=== PATIENT | male | born 1960 | race Caucasian/White ===

== ENCOUNTER 2016-09-08 13:03 | Inpatient (IN) | payer MEDICARE ==
--- NOTE | ~2016-09-08 | DS ---
Unit #: [id number] #: [id number] Patient: NYLA BRANDON [id number] [facility] [address] [place], [place] [address] [id number] MR#: [id number] NAME: NYLA BRANDON ROOM: 312 Age: 56 Sex: M Admission Date: 09/08/2016 : 1960 Discharge Date: 09/10/2016 Attending Physician: Brittany Multani M.D. Primary Care Physician: Ana Paula Corea M.D. DISCHARGE SUMMARY REASON FOR ADMISSION Bilateral/bibasilar pneumonia/acute respiratory failure. HISTORY OF PRESENT ILLNESS/HOSPITAL COURSE The patient is a 56-year-old morbidly obese gentleman with underlying past history of atrial fibrillation, coronary artery disease, stent placement, recent hospital admission at [facility] in late 04/2016 for squamous cell carcinoma around the anus, status post resection of large tumor with wound VAC placement, who has chronic lower extremity venous stasis and/or wounds. He apparently was going to his wound care physician for the first time. He called over the phone, was asking about how many stairs were present, he states that he has some difficulty breathing and was instructed to go to the emergency room. While he was evaluated at [facility], his chest x-ray showed bibasilar pneumonia and thus he was transferred to [facility] for healthcare acquired pneumonia in consideration of his recent hospital stay. He was placed on initial IV antibiotics while he was at the outside facility. While he was here, clinically speaking, he was stable, he was placed on telemetry floor. He underwent a CT chest without contrast, which did reveal atherosclerotic aorta as well as aortic aneurysm dilatation up to 4.3 cm, but there was no acute infiltrates which are noted. There was scattered areas of atelectasis which were noted. His antibiotics were later discontinued altogether. He was placed on Levaquin as well as a DuoNeb aerosol solutions and Solu-Medrol secondary to acute respiratory failure. He was noted to be acutely hypoxic with his O2 saturations in the mid 80s. His oxygen was gradually weaned to room air. It currently is in the mid 90s. His Solu-Medrol since been discontinued, transitioned to p.o. prednisone. It seems likely the most likely cause of his acute hypoxic respiratory failure with COPD exacerbation. In regard to his underlying history of chronic wounds as well as lower extremity venous stasis changes, I became concerned for possibility of diabetes. His hemoglobin A1c was assessed at this hospital admission came Unit #: [id number] #: [id number] Patient: NYLA BRANDON at 6.1%. It appears that his sugar is fairly stable. In regard to his chronic lower extremity edema and wounds, we placed consultation to Dr. Buckley, who recommended outpatient followup at the [facility]. Blood cultures were also ascertained this hospital admission, which were negative. At this point in time, he is currently medically stable for discharge. I did also discuss this case with Dr. Noelle Soriano of Oncology Services. The patient is to continue wound care VAC changes on Wednesday, Wednesday, and Wednesday, which is followed by visiting nurse services at home. He will follow up with Dr. Michael Turner of Oncology Services as an outpatient for ongoing radiation and further treatment in regard to his underlying history of squamous carcinoma of the skin around the anus. He is to be maintained on Coumadin for his chronic atrial fibrillation. There were no acute events while he was here. He is to follow up with Dr. Buckley as an outpatient for chronic lower extremity wounds. I will give him a prescription for Levaquin as well as prednisone at time of discharge. Please see below for details of medications adjustment. FINAL DISCHARGE DIAGNOSES 1. Acute hypoxic respiratory failure on admission, now improved. 2. Acute exacerbation of chronic obstructive pulmonary disease. 3. Severe morbid obesity. 4. Chronic atrial fibrillation. 5. Coronary artery disease, status post stent placement in the past. 6. Presumed healthcare acquired pneumonia on initial chest x-ray; however, CT chest negative. 7. 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 8. Chronic lower extremity venous stasis. 9. Chronic anticoagulation with Coumadin. 10. Peripheral neuropathy likely secondary to diabetes. 11. Insulin-dependent diabetes. 12. Depression. 13. Chronic lower extremity edema. 14. Chronic pain syndrome. FINAL DISCHARGE MEDICATIONS Levaquin 750 mg p.o. daily x5 days, prednisone 40 mg p.o. daily x5 days, Symbicort 160/4.5 two puffs b.i.d., DuoNeb aerosol solution q.6 hours scheduled while at home, Proventil HFA 1 to 2 puffs q.6 p.r.n., prednisone 40 mg p.o. daily x5 days, Tylenol 650 mg p.o. q.6 p.r.n., Coumadin 8 mg p.o. daily, Neurontin 400 mg p.o. b.i.d., Wellbutrin XL 300 mg p.o. daily, Bystolic 20 mg p.o. daily, digoxin 0.125 mg p.o. daily, Lasix 40 mg p.o. daily, Catapres 0.2 mg p.o. q.6, Diovan 80 mg p.o. daily, Toujeo SoloStar 8 units subcu daily, Percocet 7.5/325 one tablet p.o. q.8 hours p.r.n., Aldactone 25 mg p.o. daily, K-Dur 20 mEq p.o. daily, theophylline 400 mg p.o. daily, Daliresp 500 mcg p.o. daily, Imdur 60 mg p.o. daily, vitamin B12 1000 mcg IM q.2 weeks to be set up by primary care physician. Unit #: [id number] #: [id number] Patient: NYLA BRANDON DISCHARGE CONDITION Stable. DISCHARGE DISPOSITION Home. [facility] to continue to follow the patient as outpatient for wound care/wound VAC changes Wednesday, Wednesday, Wednesday. FOLLOWUP Follow up wound clinic, Dr. Buckley's office at [facility] [address] Turner, Oncology services per previous direction. Followup PCP in 7 to 10 days for CBC, PT/INR. Time, 55 minutes in the coordination of this discharge, chart review, and/or management. Dictated by... Klever Beckford/hafsa TD: 09/10/2016 23:38 JOB #: [id number] DISCHARGE SUMMARY Page 1 of 1 X Brittany Multani MD X DISCHARGE SUMMARY
--- NOTE | ~2016-09-08 | CO ---
Unit #: [id number] #: [id number] Patient: NYLA SUN [id number] [id number] [facility]. [place], [place] [address] [id number] MR#: [id number] NAME: NYLA SUN ROOM: 312 Age: 56 Sex: M Admission Date: 09/08/2016 : 1960 Attending Physician: Mavis Verde M.D. Primary Care Physician: Ana Paula Corea M.D. Consultation Date: 09/09/2016 CONSULTATION REPORT Mr. Sun is a 56-year-old white male, morbidly obese, who was actually getting ready to be followed in one of the wound care clinics for his lower extremity cellulitis, when he was noted to have shortness of breath. He went to the emergency room and they did an x-ray of his chest and they said he had pneumonia and he was admitted. He was started at that point in time on some IV antibiotics. We were asked to see him because a wound vacuum system was in place. This had been in place for about six months. He had had some surgery done downtown for anal carcinoma which required wound vacuum per one of the surgeons downtown. The patient also has what appears to be possible fluid overload with chronic cellulitis of his lower extremities with combined venous stasis disease and stasis edema from possible fluid overload. The patient, on the left leg, has some chronic ulcerations. They appear to be reasonably superficial and were probably due to blistering upon swelling of the legs at some point in time. Those tissues look reasonably healthy looking and do not need any surgical debridement at this time. What we will do is write dressing change orders for this patient for his legs. We will do Kerlix and Camilo wraps on his legs. He will get treatment with silver collagen dressings on the ulcers on the legs along with coating the legs with some topical medication to decrease areas of erythema. We will go ahead and wrap these legs for edema control. The wound vacuum system that is present will be changed per the wound care nurse here at the hospital. I would refer this back to the surgeon who placed the wound vacuum system once the patient has been discharged. We will follow this patient while he is in the facility here for his pneumonia and we will periodically check his legs to make sure they are responding to treatment. These areas on his legs can be treated as an outpatient and do not require hospitalization at this time. Dictated by... Klever Macdonald/cheryl TD: 09/09/2016 07:13 JOB #: [id number] Unit #: [id number] #: [id number] Patient: NYLA SUN CONSULTATION REPORT Page 1 of 1 X Don Buckley MD X CONSULTATION REPORT
--- NOTE | ~2016-09-08 | CR72 ---
[facility] A Service of [facility] RADIOLOGY TEXT RESULTS PATIENT: NYLA BRANDON LOCATION: A 312-01 : [birth year] UNIT #: [id number] AGE: [address]: Brittany Multani MD SEX: M ORDER DR: [id number] [place] [address] [id number] MR#: [id number] Acc #: [id number] NAME: NYLA BRANDON : 1960 SEX: M STUDY DATE/TIME: 09/08/2016 13:44 UNIT: SED ROOM: STUDY DESCRIPTION: CR Chest Single View Portable Attending Physician: Lj Soni M.D. Ordering Physician: Lj Soni M.D. Primary Care Physician: Ana Paula Corea M.D. MEDICAL IMAGING REPORT This report is preliminary unless electronic signature is present. EXAM Portable chest INDICATION Dyspnea today COMPARISON 04/29/2016 FINDINGS There are bilateral lower zone infiltrates. Heart size is normal. Visualized osseous structures unremarkable. IMPRESSION Development of bilateral lower lobe infiltrates suspicious for pneumonia. Followup to clearing is recommended. Dictated by... Mark Das M.D. THIS IS AN ELECTRONICALLY VERIFIED REPORT Mark Das M.D. at 09/09/2016 9:08 AM Yusra TD: 09/08/2016 15:30 JOB #: [id number] MEDICAL IMAGING REPORT Page 1 of 1
--- NOTE | ~2016-09-08 | HP ---
Unit #: [id number] #: [id number] Patient: NYLA BRANDON [id number] [facility] [address]. [place], [place] [address] [id number] I MR#: [id number] NAME: NYLA BRANDON ROOM: 312 Age: 56 Sex: M Admission Date: 09/08/2016 : 1960 Attending Physician: Mavis Verde M.D. Primary Care Physician: Ana Paula Corea M.D. HISTORY AND PHYSICAL REASON FOR ADMISSION Bilateral/bibasilar pneumonia, acute respiratory failure. 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 Upon hearing this, the Wound Care Center then asked the patient to go to the emergency room. He subsequently went to [facility] where he was evaluated. On workup chest x-ray did show bibasilar pneumonia and thus he was transferred to [place] [facility] for further evaluation. It was noted approximately one to two months ago he did have surgical resection of initially what was thought to be a sebaceous cyst on his lower back. Later biopsy was positive for carcinoma. I do not have details and I am unable to log into [facility] records at the present time but he stated to me that he was followed by Dr. Turner of oncology services as an outpatient and he had recently had a PET scan. He is not sure if he was supposed to be started on chemotherapy and/or radiation but he did have the aforementioned tumor surgically resected by Dr. Nikhil Frost. He has been followed by wound care nurses at home three times a week. His wound care VAC has been changed. He followed up with his primary care physician, Dr. Corea, who noted that he had bilateral lower extremity wounds, left worse than right, recommended outpatient evaluation to [facility] and thus promoted today's evaluation as mentioned above. He tells me that he has moved from [place] approximately one year ago. Over the past year he has not had any coronary/cardiac issues. He does have a prior history of atrial fibrillation as well as heart failure, Unit #: [id number] #: [id number] Patient: NYLA BRANDON undefined ejection fraction as well as stent placement. He is not sure of exact location. PAST MEDICAL HISTORY 1. Coronary artery disease. 2. Stent placement. 3. Heart failure, undefined if diastolic versus systolic. 4. Hypertension. 5. Chronic respiratory failure, on home O2 2 to 4 L. 6. Ongoing tobacco abuse. 7. Recent diagnosis of carcinoma in lower skin/spine. 8. Diabetes with insulin dependence. 9. Osteoarthritis. PAST SURGICAL HISTORY 1. Stent placement. 2. Back surgery, recent. HOME MEDICATIONS Wellbutrin, Bystolic, clonidine, digoxin, Lasix, gabapentin, Imdur, nicardipine, Percocet, potassium chloride, Aldactone, Symbicort, theophylline, Lantus, valsartan, Coumadin. ALLERGIES Penicillin. REVIEW OF SYSTEMS Please see HPI. Twelve points otherwise negative except for those positive as noted in the HPI. SOCIAL HISTORY Positive tobacco use. Negative alcohol use. Denies recreational drug use. PHYSICAL EXAMINATION VITAL SIGNS: Temperature 98.7, pulse 83, respiratory rate 22, blood pressure 131/90. GENERAL APPEARANCE: Morbidly obese 56-year-old male sitting up at the edge of the bed, comfortable, in no acute distress. HEAD EXAM: Normocephalic and atraumatic. EAR EXAM: Tympanic membranes do not reveal any erythema or injection. NECK EXAM: Supple. CVS: S1, S2, without murmur. RESPIRATORY: Diminished with prolonged expiration noted. GI/ABDOMEN: Distention noted but nontender. LOWER EXTREMITY EXAM: 2+ lower extremity edema noted bilaterally. Anterior cellulitis noted bilaterally, left worse than right with open areas which are noted. NEUROLOGIC EXAM: Patient is alert and oriented x3. No evidence of any focal nerve deficits. PSYCHIATRIC EXAM: Patient demonstrates normal affect and mood. DIAGNOSTIC STUDIES LABORATORY: Labs at the time of admission include a BMP, CBC unremarkable. Initial cardiac enzyme set negative. IMAGING: Chest x-ray showing bibasilar pneumonia. Unit #: [id number] #: [id number] Patient: NYLA BRANDON CARDIOVASCULAR: EKG showing flattened T-waves, left axis deviation. No acute process. INITIAL ADMISSION DIAGNOSES 1. Pneumonia, healthcare acquired secondary to recent hospital stay. 2. Bilateral lower extremity cellulitis. 3. Coronary artery disease requiring stent placement. 4. Prior history of heart failure, undefined systolic versus diastolic. 5. Chronic respiratory failure, on home oxygen. 6. Chronic lower extremity wounds. 7. Recent diagnosis of carcinoma/tumor in lower back area with recent incision and removal. 8. Diabetes with insulin dependence. 9. Morbid obesity. 10. Chronic osteoarthritis. 11. Chronic back pain. 12. Chronic obstructive pulmonary disease. PLAN 1. Admission telemetry floor. 2. Heart healthy diet. 3. Check 2D echo, blood cultures. 4. IV Levaquin. 5. Check CT chest. 6. Try to ascertain and obtain previous records from [facility]. 7. Consultation to wound care nurse. 8. Consultation to [facility] for chronic wounds. 9. Consultation to Dr. Turner of oncology services in regard to the patient's recent diagnosis of carcinoma. Plans have been reviewed with the patient in detail. Further hospital course to follow. Time spent 55 minutes. Dictated by Klever Beckford/gabriel TD: 09/08/2016 18:28 JOB #: [id number] HISTORY AND PHYSICAL Page 1 of 1 X Brittany Multani MD X HISTORY AND PHYSICAL
--- NOTE | ~2016-09-08 | CO ---
Unit #: [id number] #: [id number] Patient: NYLA BRANDON [id number] [id number] [facility]. [place], [place] [address] [id number] MR#: [id number] NAME: NYLA BRANDON ROOM: 312 Age: 56 Sex: M Admission Date: 09/08/2016 : 1960 Attending Physician: Brittany Multani M.D. Primary Care Physician: Ana Paula Corea M.D. CONSULTATION REPORT CHIEF COMPLAINT Squamous cell carcinoma around the anus. Status post resection, wound VAC, came in short of breath. This is my partner, Dr. Turner's patient. 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 He weighs 440 pounds. He has a 60 pack-year smoking. During 04/2016 he was diagnosed with a squamous cell carcinoma around his anus. He had a wide excision. He had a wound VAC. His wound is improving. The case was discussed in the tumor board. Once the wound has healed he will receive radiation. He came to this hospital with shortness of breath and dyspnea on exertion. CT of the chest PE protocol on 09/08/2016 showed no PE. There is some mediastinal lymph node. The patient received antibiotics, inhalers and steroids. He is feeling better and he wants to go home. PAST MEDICAL HISTORY 1. Diabetes. 2. Hypertension. 3. Atrial fibrillation. 4. Congestive heart failure. 5. Squamous cell carcinoma. 6. Chronic obstructive pulmonary disease. PAST SURGICAL HISTORY 1. Removal of the skin around the anus. 2. Polypectomy. SOCIAL HISTORY As mentioned above, has been smoking 2 packs per day for 30 years. He started at a young age. Denies alcohol abuse. He is a retired livestock trucker. FAMILY HISTORY Negative for cancer. ALLERGIES Penicillin. Unit #: [id number] #: [id number] Patient: NYLA BRANDON REVIEW OF SYSTEMS CONSTITUTIONAL: No fever, no chills, no sweats, no weight loss. EYES: No visual symptoms. EARS, NOSE AND THROAT: There is no runny nose or sore throat or difficulty hearing. CARDIOVASCULAR: No chest pain. No shortness of breath. No palpitations. No orthopnea. No PND. RESPIRATORY: As mentioned above. GASTROINTESTINAL: No nausea, vomiting, diarrhea, constipation, hematochezia or melena. GENITOURINARY: No urinary frequency, hesitancy or urgency. No blood in the urine. MUSCULOSKELETAL: No muscle or joint pain. NEUROLOGIC: No headache. No numbness or tingling. No weakness. No seizure. PSYCHIATRIC: No anxiety, depression or mood disturbance. ENDOCRINE: No excessive urination or thirst. DERMATOLOGIC: As mentioned above. ALLERGIC/IMMUNOLOGIC: No symptoms. HEMATOLOGIC/LYMPHATIC: Denies any symptoms. PHYSICAL EXAMINATION GENERAL: Patient is comfortable. ECOG is 0. The patient is pleasant. VITAL SIGNS: Afebrile, O2 saturations 93%, pulse 93, respiratory rate 21, blood pressure 139/62, weight 200. HEENT: Moist mucosa. Pupils equally reactive to light. Extraocular muscles intact. Sclerae anicteric. No obvious bleeding from nasal mucosa or oral mucosa. Scalp normal. Hearing normal. NECK: No JVD. No lymphadenopathy. LYMPHATIC/HEMATOLOGIC: There is no palpable adenopathy in the neck, axilla or inguinal area. CARDIOVASCULAR: S1, S2. Regular rate and rhythm. No S3 or S4. RESPIRATORY: Chest symmetrical, normal. Clear to auscultation bilaterally. No wheezes, no rales, no rhonchi. No dullness to percussion. ABDOMEN/GASTROINTESTINAL: Abdomen is soft, nontender, nondistended. No hepatosplenomegaly. EXTREMITIES: There is no clubbing, no cyanosis, no edema. No varicose veins. NEUROLOGICAL: Patient is alert, awake and oriented x3. Cranial nerves II-XII are intact. Sensory grossly intact. Motor is 4/5 in all four extremities. Gait is normal. Station is normal. Language is normal. Memory is normal. DTRs +2 in all four extremities. MUSCULOSKELETAL: No joint swelling. No bony tenderness. No muscle tenderness. SKIN: No petechiae, no rash, no ecchymosis. PSYCHIATRIC: No anxiety. No delusions or hallucinations. There is no agitation. Eye contact is normal. Affect is appropriate. There is no flight of ideas. DIAGNOSTIC STUDIES IMAGING: CT scan as mentioned above. LABORATORY: Creatinine 1.5. LFTs normal. White blood cell count 9.1, platelets 198. ASSESSMENT/PLAN This is a 56-year-old male with the following Unit #: [id number] #: [id number] Patient: NYLA BRANDON. Squamous cell carcinoma around the anus. The patient had a wide excision. He has a wound VAC. This was done during 04/2016. Once his wound improves he will receive radiation. He already has seen Dr. Saul Mejia. He will follow up with my partner, Dr. Turner. 2. (1) . He has a mild exacerbation of chronic obstructive pulmonary disease. He is going home. Dictated by... Kahlil Soriano M.D. Nicole TD: 09/10/2016 15:38 JOB #: [id number] CONSULTATION REPORT Page 1 of 1 X aKhlil Soriano MD CONSULTATION REPORT
--- NOTE | ~2016-09-08 | CT57 ---
[facility] A Service of [facility] & [facility] RADIOLOGY TEXT RESULTS PATIENT: NYLA BRANDON LOCATION: [facility] 312-01 : 58 UNIT #: [id number] AGE: [address]: Mavis Verde MD SEX: M ORDER DR: [id number] [facility] [address] [facility]. [place], [place] [address] [id number] MR#: [id number] Acc #: [id number] NAME: NYLA BRANDON : 1960 SEX: M STUDY DATE/TIME: 09/08/2016 20:15 UNIT: C3A PCU ROOM: 312 STUDY DESCRIPTION: CT Chest Wo Cont Attending Physician: Mavis Verde M.D. Ordering Physician: Brittany Multani M.D. Primary Care Physician: Ana Paula Corea M.D. MEDICAL IMAGING REPORT This report is preliminary unless electronic signature is present EXAM CT chest no contrast, 09/08/2016 INDICATION Dyspnea, shortness of air, pneumonia today, cough for over 30 years. History of hypertension, congestive heart failure. Squamous cell carcinoma of the anus. TECHNIQUE Noncontrast CT of the chest was performed. Correlation is made with PET CT 07/27/2016. This CT exam was performed with one or more of the following radiation dose reduction techniques: automatic exposure control, adjustment of mA and/or kV according to patient size, and iterative reconstruction. FINDINGS CT CHEST: No pleural effusion. Scattered areas of atelectasis in the lung bases left greater than right. No dense pneumonia. No pneumothorax or distinct pulmonary nodule. Scattered areas of pleural thickening in the left lung and to a lesser extent the right lung are unchanged from the prior study. Included thyroid unremarkable. The heart is enlarged. There is no pericardial effusion. No axillary adenopathy. Incidental gynecomastia to a mild degree. Probable reactive mediastinal nodes measure a centimeter or less short-axis. Aorta atherosclerotic and the ascending aorta is aneurysmal up to 4.3 cm. Included upper abdomen is negative. Portions of the abdomen were excluded from view due to body habitus. No suspicious bone lesion. [facility] A Service of [facility] & [facility] RADIOLOGY TEXT RESULTS PATIENT: NYLA BRANDON LOCATION: C3A 312-01 : 58 UNIT #: [id number] AGE: [address]: Mavis Verde MD SEX: M ORDER DR: IMPRESSION 1. There are scattered areas of atelectasis in the lung bases and in the lingula and middle lobe. No evidence of pneumonia or pleural effusion. 2. Cardiomegaly and aneurysmal dilatation of the ascending aorta. 3. Probable reactive mediastinal nodes. 4. Upper abdomen demonstrates no acute findings. Dictated by... Carlos Bowers M.D. THIS IS AN ELECTRONICALLY VERIFIED REPORT Carlos Bowers M.D. at 09/09/2016 5:16 AM David TD: 09/09/2016 05:00 JOB #: [id number] MEDICAL IMAGING REPORT Page 1 of 1 COPY
--- NOTE | ~2016-09-08 | EKG ---
PATIENT: NYLA BRANDON UNIT #: [id number] Ventricular Rate: 70 BPM Atrial Rate: 64 BPM QRS Duration: 90 ms Q-T Interval: 382 ms QTC Calculation(Bezet): 412 ms Calculated R [place]: -27 degrees Calculated T [place]: 76 degrees Diagnosis Line: Atrial fibrillation with premature ventricular or Diagnosis Line: aberrantly conducted complexes Diagnosis Line: Cannot rule out Anteroseptal infarct (cited on or Diagnosis Line: before 08-SEP-2016) Diagnosis Line: Abnormal ECG Diagnosis Line: When compared with ECG of 10-OCT-2015 14:34, Diagnosis Line: No significant change was found Diagnosis Line: Confirmed by COLLEEN ESPOSITO MD ([id number]) on 09/09/2016 Diagnosis Line: 9:13:32 PM INTERPRETING MD: VAIBHAV HARRIS
--- NOTE | ~2016-09-08 | BMI ---
[facility] Nutrition Therapy DATE: 09/09/16 Patient: NYLA BRANDON Physician: KATHY Address: [id number] [place] [address] DRIVE Room/Bed: [address] [place] [address], Zip: [place] [address] Admit Date: 09/08/16 Date of : 58 Height: 6 0 Weight: 429 195 HIGH BMI NOTE: ANTHROPOMETRICS: HT: 72" WT: 195 KG BMI: 58.3 INTERVENTION: 1. CONSISTENT CARBOHYDRATE DIET RECOMMENDATIONS: 1. ADD A HEART HEALTHY DIET RESTRICTION IN ORDER TO PROMOTE GRADUAL WEIGHT LOSS TOWARDS A HEALTHY BMI. Respectfully, RIKI PÉREZ RD, LD [facility] cc: client file
[~2016-09-08 13:03] MED LIST: ALBUTEROL INHALER INH; ALBUTEROL NEBULIZER INH; ALDACTONE25 MG PO; ASPIRIN81 MG PO; BACTRIM PO; BUPROPION XL300 M1 PO; BYSTOLIC20 MG PO; CLONIDINE PO; COUMADIN PO; DIGOX0.125 MG PO; DIOVAN320 MG PO; HOMATROPINE PO; HYDRALAZINE HCL50 MG PO; HYDROCODONE PO; IMDUR-ER60 MG PO; K-DUR20 ME1 PO; LASIX PO; NICARDIPINE HCL20 MG PO; PREDNISONE PO; SEE NOTE; SYMBICORT INH; THEO-24400 MG PO; TOUJEO SOL300 UNIT/1
[2016-09-08 13:52] LABS: BASOPHIL% 0.6 % (0-2.5); EOSINOPHIL# 0.1 X10e3 (0-0.7); EOSINOPHIL% 2.3 % (0.0-7.0); HEMATOCRIT 41.1 % (38.0-50.0); HEMOGLOBIN 13.2 gm/dL (13.0-16.0); LYMPHOCYTE# 0.8 X10e3 (1.0-3.5); LYMPHOCYTE% 16.5 % (17.0-45.0); MEAN CORPUSCULAR HGB CONC 32.1 g/dL (30-36); MEAN PLATELET VOLUME 7.1 FL (6.5-11.5); MONOCYTE# 0.7 X10e3 (0-1.0); MONOCYTE% 13.2 % (3.0-12.0); NEUTROPHIL# 3.4 X10e3 (1.5-7.1); NEUTROPHIL% 67.4 % (40-75); PLATELET COUNT 211 X10e3 (140-420); RED BLOOD COUNT 4.89 X10e (3.90-5.60); RED CELL DISTRIBUTION WIDTH 18.6 % (11.0-15.5)
[2016-09-08 13:53] LABS: DIFF IND NO
[2016-09-08 14:11] LABS: INR 2.4; PROTHROMBIN TIME (PATIENT) 27.4 SECONDS (9.5-12.4)
[2016-09-08 14:12] LABS: POC - CKMB 2.4 ng/mL (0.0-7.9); POC - TROPONIN <0.05 ng/mL (<=0.05)
[2016-09-08 14:15] LABS: ALBUMIN SERUM 3.5 g/dL (3.5-5.0); BILIRUBIN, DIRECT 0.1 mg/dL (0.0-0.2); BILIRUBIN,INDIRECT 0.4 mg/dL (0.0-0.9); BILIRUBIN,TOTAL 0.5 mg/dL (0.2-2.0); BUN/CREATININE RATIO 16.15; CALCIUM SERUM 9.5 mg/dL (8.4-10.2); CREATININE SERUM 1.3 mg/dL (0.6-1.4); GLOM FILT RATE Estimated 60.6 mL/min (>60); POTASSIUM 4.4 mmol/L (3.5-5.1); PROTEIN TOTAL SERUM 7.2 g/dL (6.0-8.3)
[2016-09-08] MEDS ORDERED: BYSTOLIC20 MG PO (18:17)
[2016-09-08] MEDS ORDERED: GABAPENTIN400 M2 PO (18:18)
[2016-09-08] MEDS ORDERED: PERCOCET 7.5-31 EACH PO (18:19)
[2016-09-08] MEDS ORDERED: TOUJEO SOL300 UNIT/1 (18:20)
[2016-09-09 05:29] LABS: HEMATOCRIT 40.2 % (38.0-50.0); HEMOGLOBIN 12.7 gm/dL (13.0-16.0); MEAN CELL VOLUME 84.4 FL (83-96); MEAN CORPUSCULAR HEMOGLOBIN 26.7 PG (28-34); MEAN CORPUSCULAR HGB CONC 31.6 g/dL (30-36); MEAN PLATELET VOLUME 7.1 FL (6.5-11.5); RED BLOOD COUNT 4.77 X10e (3.90-5.60); RED CELL DISTRIBUTION WIDTH 18.8 % (11.0-15.5); WHITE BLOOD COUNT 4.5 X10e3 (4.0-10.5)
[2016-09-09 05:46] LABS: INR 2.5; PROTHROMBIN TIME (PATIENT) 27.7 SECONDS (9.6-11.5)
[2016-09-09 06:32] LABS: ALBUMIN SERUM 3.3 g/dL (3.5-5.0); BILIRUBIN,TOTAL 0.4 mg/dL (0.2-2.0); BUN/CREATININE RATIO 18.57; CREATININE SERUM 1.4 mg/dL (0.6-1.4); GLOM FILT RATE Estimated 55.4 mL/min (>60); POTASSIUM 5.2 mmol/L (3.5-5.1); PROTEIN TOTAL SERUM 7.3 g/dL (6.0-8.3)
[2016-09-10 05:41] LABS: HEMATOCRIT 40.2 % (38.0-50.0); HEMOGLOBIN 12.4 gm/dL (13.0-16.0); MEAN CELL VOLUME 85.9 FL (83-96); MEAN CORPUSCULAR HEMOGLOBIN 26.5 PG (28-34); MEAN CORPUSCULAR HGB CONC 30.8 g/dL (30-36); MEAN PLATELET VOLUME 7.3 FL (6.5-11.5); RED BLOOD COUNT 4.68 X10e (3.90-5.60); RED CELL DISTRIBUTION WIDTH 18.4 % (11.0-15.5)
[2016-09-10 05:46] LABS: WHITE BLOOD COUNT 9.1 X10e3 (4.0-10.5)
[2016-09-10 06:33] LABS: BUN/CREATININE RATIO 20.71; CREATININE SERUM 1.4 mg/dL (0.6-1.4); GLOM FILT RATE Estimated 55.4 mL/min (>60)
[2016-09-10] MEDS ORDERED: ALBUTEROL17 GM INH (09:59)
[2016-09-10] MEDS ORDERED: COMBIVENT U/D3 M2 INH (09:59)
[2016-09-10] MEDS ORDERED: BACTROBAN15 GM TOP (10:00)
[2016-09-10] MEDS ORDERED: ACETAMINOPHEN650 M1 PO (10:00)
[2016-09-10] MEDS ORDERED: DIOVAN80 M1 PO (10:01)
[2016-09-10] MEDS ORDERED: DALIRESP500 MCG PO (10:02)
[2016-09-10] MEDS ORDERED: CYANOCOBAL1000 MCG/M INJ (10:02)
[2016-09-10] MEDS ORDERED: LEVAQUIN750 MG PO (10:03)
[2016-09-10] MEDS ORDERED: PREDNISONE PO (10:03)
== END 2016-09-10 12:22 | disposition home health service (06) | DRG 189 ==
LOC: SED 13:03 → C3A PCU 18:15
PROVIDERS: Emergency Medicine; Family Medicine
PROC: B24BYZZ Ultrasonography of Heart with Aorta using Other Contrast (ICD-10-PCS; principal; 2016-09-09)
DX: J96.21 Acute and chronic respiratory failure with hypoxia (principal); J18.9 Pneumonia, unspecified organism; I11.0 Hypertensive heart disease with heart failure; E66.01 Morbid (severe) obesity due to excess calories; I50.9 Heart failure, unspecified; Z99.81 Dependence on supplemental oxygen; L03.115 Cellulitis of right lower limb; J44.9 Chronic obstructive pulmonary disease, unspecified; J44.1 Chronic obstructive pulmonary disease with (acute) exacerbation; L03.116 Cellulitis of left lower limb; I48.91 Unspecified atrial fibrillation; I25.10 Atherosclerotic heart disease of native coronary artery without angina pectoris; Z95.5 Presence of coronary angioplasty implant and graft; E11.9 Type 2 diabetes mellitus without complications; Z79.4 Long term (current) use of insulin; M19.90 Unspecified osteoarthritis, unspecified site; F17.210 Nicotine dependence, cigarettes, uncomplicated; Z88.0 Allergy status to penicillin; M54.9 Dorsalgia, unspecified; G89.29 Other chronic pain; C44.520 Squamous cell carcinoma of anal skin; I87.8 Other specified disorders of veins
CPT/HCPCS: 36415; 71010; 71250; 80048; 80053; 80076; 80200; 82553; 82607; 82947; 83036; 83605; 83874; 83880; 84443; 84484; 85025; 85027; 85610; 85652; 86140; 87040; 93005; 93306; 94640; 96365; 96367; 96375; 97165; 99285; G8987-GO; G8988-GO; G8989-GO; J1815; J1956; J2270; J2405; J2920; J2930; J3260; J3370; J3420

== ENCOUNTER 2016-11-06 14:16 | Emergency (ER) | payer MEDICARE, OTHER ==
[~2016-11-06 14:16] MED LIST changes: +ACETAMINOPHEN650 M1 PO; +ALBUTEROL17 GM INH; +BACTROBAN15 GM TOP; +COMBIVENT U/D3 M2 INH; +CYANOCOBAL1000 MCG/M INJ; +DALIRESP500 MCG PO; +DIOVAN80 M1 PO; +GABAPENTIN400 M2 PO; +LEVAQUIN750 MG PO; +PERCOCET 7.5-31 EACH PO
[2016-11-06 15:19] LABS: BASOPHIL% 0.3 % (0-2.5); EOSINOPHIL# 0.1 X10e3 (0-0.7); HEMATOCRIT 41.5 % (38.0-50.0); HEMOGLOBIN 13.3 gm/dL (13.0-16.0); LYMPHOCYTE# 0.6 X10e3 (1.0-3.5); LYMPHOCYTE% 7.3 % (17.0-45.0); MEAN CELL VOLUME 83.9 FL (83-96); MEAN CORPUSCULAR HGB CONC 32.1 g/dL (30-36); MEAN PLATELET VOLUME 6.9 FL (6.5-11.5); MONOCYTE# 0.5 X10e3 (0-1.0); MONOCYTE% 6.1 % (3.0-12.0); NEUTROPHIL# 7.2 X10e3 (1.5-7.1); NEUTROPHIL% 85.3 % (40-75); PLATELET COUNT 229 X10e3 (140-420); RED BLOOD COUNT 4.95 X10e (3.90-5.60); RED CELL DISTRIBUTION WIDTH 19.4 % (11.0-15.5); WHITE BLOOD COUNT 8.4 X10e3 (4.0-10.5)
[2016-11-06 15:21] LABS: DIFF IND NO
[2016-11-06 15:27] LABS: INR 2.6; PROTHROMBIN TIME (PATIENT) 30.1 SECONDS (9.5-12.4)
[2016-11-06 15:34] LABS: BUN/CREATININE RATIO 13.57; CREATININE SERUM 1.4 mg/dL (0.6-1.4); GLOM FILT RATE Estimated 55.4 mL/min (>60); POTASSIUM 4.5 mmol/L (3.5-5.1); URIC ACID 7.7 mg/dL (2.6-7.2)
== END 2016-11-06 16:52 | disposition home or self-care (01) ==
LOC: SED 14:16
PROVIDERS: Emergency Medicine
DX: L03.114 Cellulitis of left upper limb (principal); M10.9 Gout, unspecified; F17.200 Nicotine dependence, unspecified, uncomplicated; Z98.890 Other specified postprocedural states; Z88.0 Allergy status to penicillin; Z79.01 Long term (current) use of anticoagulants; Z79.899 Other long term (current) drug therapy
CPT/HCPCS: 80048; 84550; 85025; 85610; 96365; 96375; 96376; 99284; J1100; J1170